=== PATIENT | female | born 1950 | race Caucasian/White ===

== ENCOUNTER 2017-03-27 09:38 | Day surgery (SDC) | payer BC ==
[~2017-03-27] VITALS: Ht 170.2 cm; Wt 55.8 kg
--- NOTE | ~2017-03-27 | EGD ---
EGD REPORT [facility] [address] [address] NAME: RACH SALDIVAR : 48 STATUS : REG [facility]#: [id number] AGE: 66 ADM/REG DATE : 03/27/17 MR#: [id number] REPORT SERV DATE: 03/27/17 DICTATED BY: JAIRO OSMAN DATE: 03/27/17 REPORT STATUS : Draft [facility]ANS[facility] DATE: 03/27/17 Pulmonology Patient Name: Rach Saldivar Procedure Date: 03/27/2017 12:34 PM Date of : 1950 Attending MD: ERNESTO OSMAN MD Procedure Date No Time: 03/27/2017 Procedure: EBUS Navigational Bronchoscopy Indications: RUL spiculated lung nodule Providers: ERNESTO OSMAN MD Referring MD: Nuira Galindo Medicines: Lidocaine 2% 20 mL Complications: No immediate complications Procedure: Pre-Anesthesia Assessment: - ASA Grade Assessment: IV - A patient with severe systemic disease that is a constant threat to life. - A History and Physical has been performed. Patient meds and allergies have been reviewed. The risks and benefits of the procedure and the sedation options and risks were discussed with the patient. All questions were answered and informed consent was obtained. Patient identification and proposed procedure were verified prior to the procedure by the physician and the nurse in the pre-procedure area in the procedure room. Mental Status Examination: alert and oriented. Airway Examination: normal oropharyngeal airway. Respiratory Examination: poor air movement. CV Examination: normal and RRR, no murmurs, no S3 or S4. ASA Grade Assessment: IV - A patient with severe systemic disease that is a constant threat to life. After reviewing the risks and benefits, the patient was deemed in satisfactory condition to undergo the procedure. The anesthesia plan was to use general anesthesia. Immediately prior to administration of medications, the patient was re-assessed for adequacy to receive sedatives. The heart rate, respiratory rate, oxygen saturations, blood pressure, adequacy of pulmonary ventilation, and response to care were monitored throughout the procedure. The physical status of the patient was re-assessed after the procedure. After obtaining informed consent, the Bronchoscope was introduced through the mouth, via the endotracheal tube (the patient was intubated for the procedure) and advanced to the tracheobronchial tree. the BF [id number] was introduced through the mouth, via the endotracheal tube (the patient was intubated for the EGD REPORT [address] [address] NAME: RACH SALDIVAR : [birth year] [place] : [facility] [id number] AGE: 66 ADM/REG DATE : 03/27/17 MR#: [id number] REPORT SERV DATE: 03/27/17 DICTATED BY: JAIRO OSMAN DATE: 03/27/17 REPORT STATUS : Draft TRANSCRIBED BY: [facility] DATE: 03/27/17 procedure) and advanced to the tracheobronchial tree. The procedure was accomplished without difficulty. The patient tolerated the procedure well. Findings: The endotracheal tube is in good position. The visualized portion of the trachea is of normal caliber. The corinne is sharp. The tracheobronchial tree was examined to at least the first subsegmental level. Bronchial mucosa and anatomy are normal; there are no endobronchial lesions, and no secretions. EBUS TBNA of lymph node level 11L x 4 passes for cytology EBUS TBNA of lymph node level 7 x 4 passes for cytology EBUS TBNA of lymph node level 4R x 4 passes for cytology EBUS TBNA of lymph node level 11R x 4 passes for cytology Using SuperDimension Edge catheter 180, peripheral probe EBUS 17s, and fluoroscopy, I performed the following biopsies: RUL lung nodule transbronchial needle aspirates x 6 passes for cytology RUL lung nodule transbronchial brush biopsy x 2 pass for cytology RUL lung nodule transbronchial forcep biopsies x 6 passes for histopathology Bronchoalveolar lavage was performed in the RUL posterior segment (B2) of the lung and sent for cell count, cytology, bacterial culture, viral smears \\T\\ culture, and fungal and AFB analysis. 140 mL of fluid were instilled. 30 mL were returned. The return was blood-tinged and cellular. There were no mucoid plugs in the return fluid CAROLIN endobronchial brush biopsies were performed for the Percepta Trial Impression: Rapid On-Site Evaluation (DAWSON): Preliminary cytology is "ATYPICAL CELLS" (final results are pending). Patient enrolled in Percepta Registry, Oncocyte and BodyVision Clinical Trials Recommendation: - Await test results. - Chest X-ray post-procedure. - Follow up in clinic in 2- 4 weeks. Attending Participation: I personally performed the entire procedure. ERNESTO OSMAN MD 03/27/2017 2:38 PM This report has been signed electronically. Number of Addenda: 0 Note Initiated On: 03/27/2017 12:34 PM [address] [address]
--- NOTE | ~2017-03-27 | CN ---
Consultation Report [facility] [address] [facility] [place]. [address] NAME: RACH CARTAGENA : [birth year] STATUS : [facility]#: [id number] AGE: 66 ADM/REG DATE : 03/27/17 MR#: [id number] REPORT SERV DATE: 03/27/17 DICTATED BY: JANET OSMAN DATE: 03/27/17 REPORT STATUS : Draft TRANSCRIBED BY: MODL DATE: 03/27/17 CONSULTATION DATE OF CONSULTATION: Dear Dr. Mota: Thank you for requesting my opinion regarding evaluation and management of Ms. Rach Cartagena's right upper lobe lung lesion. Ms. Cartagena is a pleasant 66-year-old female with a significant past medical history of home O2 dependent COPD on 2 L nasal cannula continuous, atherosclerotic peripheral vascular disease and paroxysmal atrial fibrillation, who recently underwent surveillance PET-CT scan on 02/08/2017 that demonstrated two hypermetabolic nodules in the right upper lobe and the larger of these demonstrated on her prior PET scan from 2016. This is larger and shows greater activity consistent with interval worsening. The new nodule in the right lateral aspect is also consistent with potential metabolic malignancy. No evidence of metabolic active adenopathy or distant metastatic disease was noted. The patient also states that she has had mild shortness of breath, chronic in nature, well localized to the chest, nonradiating with no significant alleviating or exacerbating factors. She had some associated symptoms of approximately 30 pounds weight loss over the past year and unfortunately, she continues to smoke approximately a half pack per day. REVIEW OF SYSTEMS: A detailed 14-point review of systems is completed. Pertinent positives and negatives are listed above. PAST MEDICAL HISTORY: 1. COPD, on home O2, 2 L continuous. 2. CVA with no residual defects. 3. Severe kyphoscoliosis. 4. Atherosclerotic peripheral vascular disease. 5. GERD. 6. Anxiety. 7. Depression. 8. Hyperlipidemia. 9. Hypertension. 10.Paroxysmal atrial fibrillation, on chronic anticoagulation held for the procedure. PAST SURGICAL HISTORY: 1. ORIF, intratrochanteric and/or subtrochanteric femur fracture. 2. Left chttl-bsa-jpdy amputation. 3. Cholecystectomy. 4. Bowel resection. 5. Bilateral cataract surgery. Consultation Report [facility] [address] [place]. [address] NAME: RACH CARTAGENA : [birth year] STATUS : [facility] PAT#: [id number] AGE: 66 ADM/REG DATE : 03/27/17 MR#: [id number] REPORT SERV DATE: 03/27/17 DICTATED BY: JANET OSMAN DATE: 03/27/17 REPORT STATUS : Draft TRANSCRIBED BY: MODJoyce DATE: 03/27/17 6. Aorta fem-pop. SOCIAL HISTORY: The patient smoked at least one and half packs for 50 years and is now down to a half pack per day. She denies any significant history of alcohol or illicit drug abuse. FAMILY HISTORY: COPD, coronary artery disease, and hypertension. ALLERGIES: DILAUDID AND FLEXERIL. HOME MEDICATIONS: Reviewed and located in the paper chart. PHYSICAL EXAMINATION: VITAL SIGNS: Reviewed and located in the paper chart. GENERAL: In no acute distress. Able to communicate in full paragraphs at a time with a raspy voice. Severe kyphoscoliosis is noted. The patient appears older than her stated age. HEENT: Normocephalic and atraumatic. Pupils are equal, round, and reactive to light and accommodation. Posterior oropharynx is clear. NECK: No JVD. No LAD. Thick neck. CARDIOVASCULAR: Regular rate and rhythm. S1 and S2 present. ABDOMEN: Nontender, nondistended. Scars are noted from prior abdominal surgery. EXTREMITIES: Left aynst-qds-kfcs amputation with prosthetic. NEUROLOGIC: Moving all four extremities. Cranial nerves 2 through 12 intact. Gait not tested. DTRs not performed. IMAGING PROCEDURE: 1. PET-CT scan performed at [facility] and [facility] was pushed to a [facility] PAC system and personally reviewed by me. Two hypermetabolic nodules in the right upper lobe present, one of the larger ones is demonstrated on the PET-CT scan performed previously in 2016. On this exam, it appears larger and has greater activity consistent with interval worsening. 2. Tiny new nodule in the lateral aspect consistent with metabolic activity and active disease, potential active disease measuring 7 to 8 mm with an SUV of 1.9. 3. No evidence of active adenopathy or distant metastatic disease. ASSESSMENT AND PLAN: Ms. Cartagena is a pleasant 66-year-old female with a significant past medical history of severe chronic obstructive pulmonary disease on chronic home O2, 2 L nasal cannula continuous, severe peripheral vascular disease and active smoker, who presents to [facility] with an abnormal PET/CT scan. PET-CT scan on 02/08/2017 demonstrates two hypermetabolic right upper lobe lung nodules, one measuring 7 to 8 mm with a peak SUV of 1.9 at the lateral right apex and another that is larger spiculated in the 1.5 cm with max SUV of 5.9, this lesion has increased in size and peak uptake since the prior exam. The patient has no evidence of mediastinal adenopathy, FDG avid adenopathy, or distant metastatic disease. The clinical and radiographic presentation are most consistent with Consultation Report [facility] [address] [place]. [address] NAME: RACH CARTAGENA : [birth year] STATUS : [facility] PAT#: [id number] AGE: 66 ADM/REG DATE : 03/27/17 MR#: [id number] REPORT SERV DATE: 03/27/17 DICTATED BY: JANET OSMAN DATE: 03/27/17 REPORT STATUS : Draft TRANSCRIBED BY: MODL DATE: 03/27/17 either an inflammatory process or malignancy. The pretest probability according to the [facility] solitary pulmonary nodule calculator is 57%. At this point, Ms. Cartagena would like to proceed forward with a biopsy to better delineate the underlying cause of her enlarging right upper lobe lung lesion. I discussed in detail potential options for CT-guided needle biopsy versus EBUS and navigation bronchoscopy. She would be a poor candidate for surgical intervention given her home O2 requirements, comorbidities and poor respiratory status. The patient is aware that the EBUS and navigation bronchoscopy is associated with potential life-threatening risks, including lung collapse, respiratory failure, and even . RECOMMENDATIONS: A summary of my recommendations are as follows: 1. Proceed with EBUS and navigation bronchoscopy. 2. The patient consented to Percepta clinical registry trial, OncoCyte and [employer] Vision for 3D fluoro trials. 3. Further recommendations to be outlined in the operative note located in [facility] and [facility]. Thank you for allowing me to participate in Ms. Cartagena's care. JT/MAU Janet Osman M.D. / [id number] CC: Lincoln Swift MD
[~2017-03-27 09:38] MED LIST: ALBUTEROL5 INH; AMITIZA24 PO; AMLODIPINE BESYLATE; AMPI500 PO; ATROVENTUD INH; ATV.5 PO; AUG875; AUG875 PO; BACDS PO; C5 PO; CELEXA20 PO; CIP5 PO; COMBIVENT; COMBIVENT INH; COMBIVENT RESPIM4 GM INH; COUMADIN3 MG PO; COUMADIN4 MG PO; COUMADIN6 MG; COUMADIN6 MG PO; COUMADIN7.5 MG PO; D.O.S.100 MG PO; DIGITEK0.125 MG PO; DSS PO; DULERA 100 MCG/13 GM INH; DULERA 200 MCG/13 GM INH; DURA50 TOP; FLONASE NAS; FLORASTOR250 MG PO; FLUCON2 PO; K250 PO; KDUR10 PO; KLOR-CON 1010 MEQ PO; L20 PO; LIDOCAINE 5% CREAM TOP; LIDODERM T; LORCET PO; MAGOX4 PO; MIRALAX POWDER1 PKT PO; MIRALAXPKT PO; MSCONT60 PO; MSCONTIN PO; MUCINEX600 MG PO; MULTIVIT/MIN PO; NEUR300 PO; NEUR400 PO; NEXIUM40 PO; NICODERM C14 MG/24 H TOP; NICODERM C21 MG/241 TOP; NORCO1 TAB PO; NORV10 PO; NYS500UDL PO; P10 PO; P20 PO; PR25; PR25 PO; PRAV10 PO; PRAVACHOL40 MG PO; PRILO PO; PROAIR HFA; PROAIR HFA INH; ROXICODONE15 MG PO; SENOKOTS PO; V5; V5 PO; VIBRATAB100 MG PO; VOLTAREN1 % TOP; ZOFRAN4 PO; ZYRTEC ALLGY10 MG PO
[2017-03-27 10:06] LABS: BASOPHILS 0.5 %; BASOPHILS ABSOLUTE 0.03 10/3/uL (0.0-0.16); EOSINOPHILS 10.7 %; EOSINOPHILS ABSOLUTE 0.71 10/3/uL (0.0-0.53); HEMATOCRIT 36.2 % (36.0-48.0); IMMATURE GRANULOCYTES 0.2 %; IMMATURE GRANULOCYTES ABSOLUTE 0.01 10/3/uL (0.0-0.11); LYMPHOCYTES 24.7 %; LYMPHOCYTES ABSOLUTE 1.64 10/3/uL (0.67-4.30); MEAN CORPUS HGB CONC 30.4 g/dL (32.0-36.0); MEAN CORPUSCULAR HEMOGLOB 25.9 pg (26.0-34.0); MEAN CORPUSCULAR VOLUME 85.2 fL (80-100); MEAN PLATELET VOLUME 9.1 fL (9.2-13.0); MONOCYTES 7.2 %; MONOCYTES ABSOLUTE 0.48 10/3/uL (0.21-1.20); NEUTROPHILS 56.7 %; NEUTROPHILS ABSOLUTE 3.78 10/3/uL (2.02-8.40); PLATELET COUNT 239 10/3/uL (150-400); RED CELL COUNT 4.25 10/6/uL (4.0-5.6); WHITE BLOOD CELLS 6.7 10/3/uL (4.5-10.5)
[2017-03-27 10:07] LABS: MANUAL DIFF NO %; RBC DISTRIBUTION WIDTH 19.5 % (12.0-16.0)
[2017-03-27 10:14] LABS: INTERNATIONAL NORMAL RATI 1.1 UNITS (-); PROTIME (NOT ORD) 13.8 SEC (12.0-14.5)
[2017-03-27 10:15] LABS: PARTIAL THROMBO TIME 27.9 SEC (22.5-37.2)
[2017-03-27 16:16] LABS: BD FL SOURCE (NOT ORD) BAL
[2017-03-27 16:17] LABS: BF TOTAL CELL CT (NOT ORD 581 /MM3; BODY FLUID RBC (NOT ORD) 43000 /MM3
[2017-03-27 16:21] LABS: BD FL LYMPH (NOT ORD) 5 %; BF BASO (NOT OF) 0 %; BF LARGE MONONUCLEAR 54 %; BODY FLUID EOS (NOT ORD) 1 %; BODY FLUID SEG (NOT ORD) 40 %
== END 2017-03-27 16:31 | disposition home or self-care (01) ==
LOC: DMU 09:38
PROVIDERS: Internal Medicine
PROC: 07974ZX Drainage of Thorax Lymphatic, Percutaneous Endoscopic Approach, Diagnostic (ICD-10-PCS; principal; 2017-03-27 11:00)
PROC: BB1 Imaging, Respiratory System, Fluoroscopy (ICD-10-PCS; 2017-03-27 11:00)
PROC: 0B9C8ZX Drainage of Right Upper Lung Lobe, Via Natural or Artificial Opening Endoscopic, Diagnostic (ICD-10-PCS; 2017-03-27 11:00)
PROC: 8E0WXBF Computer Assisted Procedure of Trunk Region, With Fluoroscopy (ICD-10-PCS; 2017-03-27 11:00)
PROC: 0B9C8ZX Drainage of Right Upper Lung Lobe, Via Natural or Artificial Opening Endoscopic, Diagnostic (ICD-10-PCS; 2017-03-27 11:00)
PROC: 0BC48ZZ Extirpation of Matter from Right Upper Lobe Bronchus, Via Natural or Artificial Opening Endoscopic (ICD-10-PCS; 2017-03-27 11:00)
DX: C34.11 Malignant neoplasm of upper lobe, right bronchus or lung (principal); E78.00 Pure hypercholesterolemia, unspecified; J44.9 Chronic obstructive pulmonary disease, unspecified; M41.9 Scoliosis, unspecified; I70.209 Unspecified atherosclerosis of native arteries of extremities, unspecified extremity; M81.0 Age-related osteoporosis without current pathological fracture; M19.90 Unspecified osteoarthritis, unspecified site; K21.9 Gastro-esophageal reflux disease without esophagitis; H91.90 Unspecified hearing loss, unspecified ear; F41.8 Other specified anxiety disorders; F17.210 Nicotine dependence, cigarettes, uncomplicated; Z86.73 Personal history of transient ischemic attack (TIA), and cerebral infarction without residual deficits; Z89.512 Acquired absence of left leg below knee; Z90.49 Acquired absence of other specified parts of digestive tract; Z98.41 Cataract extraction status, right eye; Z98.42 Cataract extraction status, left eye; Z96.1 Presence of intraocular lens; Z98.890 Other specified postprocedural states; Z88.5 Allergy status to narcotic agent; Z88.8 Allergy status to other drugs, medicaments and biological substances; Z79.01 Long term (current) use of anticoagulants; Z79.891 Long term (current) use of opiate analgesic; Z79.899 Other long term (current) drug therapy
CPT/HCPCS: 71010; 85025; 85610; 85730; 87015; 87070; 87102; 87116; 87205; 88112; 88172; 88173; 88305; 88333; 88342; 89051; 93005; C1769; J2405; J2710; J3010